=== PATIENT | female | born 1970 | race Caucasian/White ===

== ENCOUNTER 2023-05-11 07:36 | Day surgery (SDC) | payer OTHER ==
[2012-01-23 05:17] VITALS: BP 122/70
[2023-05-11] MEDS ORDERED: Sodium Chloride 0.9(Preservative Free) 10 ML IJ ONE (07:37)
[2023-05-11] MEDS ORDERED: Decadron 4 MG INJ IV ONE (07:37)
[2023-05-11] MEDS ORDERED: Versed 2 MG/2 ML Injection ONE (08:13)
[2023-05-11] MEDS ORDERED: DIPRIVAN 200 MG/20 ML IV ONE (09:58)
[2023-05-11] MEDS ORDERED: TORAdol 30 mg Injection ONE (10:25)
--- NOTE | 2023-05-11 12:01 | XRAY ---
Indication: Right L4-S1 transforaminal TOBY. Intraoperative fluoroscopy provided for 27 seconds. 4 digital spot images submitted for interpretation demonstrates posterior needle tips projecting over expected right L4 and L5 nerve roots spine. Small amount of contrast injected for needle tip placement. Correlate with intraoperative findings/report.
--- NOTE | 2023-05-11 12:25 | XRAY ---
27 seconds of fluoroscopy was used in surgery for a right L4-S1 transforaminal TOBY.
[2023-05-11] MEDS ORDERED: Lactated Ringers 1,000 ML IV ONE (15:01)
== END 2023-05-11 10:57 | disposition home or self-care (01) ==
LOC: SDC-PAIN 07:36
PROVIDERS: ATTEND Psychiatry & Neurology Pain Medicine
DX: M54.16 Radiculopathy, lumbar region (principal); E11.9 Type 2 diabetes mellitus without complications
CPT/HCPCS: 64483; 72100; 77003; 82947; J1100; J1885; J2250; J2704; Q9966

== ENCOUNTER 2023-12-21 06:51 | Day surgery (SDC) | payer OTHER ==
[2012-01-23 05:17] VITALS: BP 122/70
[2023-12-21] MEDS ORDERED: Decadron 4 MG INJ IV ONE (06:52)
[2023-12-21] MEDS ORDERED: TYLENOL EXTRA STRENGTH 500 MG PO ONE (06:52)
[2023-12-21] MEDS ORDERED: Sodium Chloride 0.9(Preservative Free) 10 ML IJ ONE (06:52)
[2023-12-21] MEDS ORDERED: DIPRIVAN 200 MG/20 ML IV ONE (08:20)
[2023-12-21] MEDS ORDERED: SUBLIMAZE 100 MCG/2 ML ONE (09:11)
--- NOTE | 2023-12-21 12:21 | XRAY ---
Indication: Right L4-S1 transforaminal TOBY. Intraoperative fluoroscopy provided for 25 seconds. 4 digital spot image submitted for interpretation demonstrates posterior needle tips projecting over the expected right L4 and L5 nerve roots. Small amount of contrast injected for needle tip placement. Correlate with intraoperative findings/report.
--- NOTE | 2023-12-21 12:36 | XRAY ---
25 seconds of fluoroscopy was used in surgery for a right L4-S1 transforaminal TOBY.
== END 2023-12-21 09:34 | disposition home or self-care (01) ==
LOC: SDC-PAIN 06:51
PROVIDERS: ATTEND Psychiatry & Neurology Pain Medicine
DX: M54.16 Radiculopathy, lumbar region (principal); E11.9 Type 2 diabetes mellitus without complications
CPT/HCPCS: 64483; 64484; 72100; 77003; 82947; J1100; J2704; J3010; Q9966; A9270-GY